=== PATIENT | female | born 1980 | race African-American/Black ===

== ENCOUNTER 2021-01-07 12:16 | Emergency (ER) | payer OTHER ==
[~2021-01-07] VITALS: Ht 160 cm; Wt 68.0 kg
[~2021-01-07 12:16] MED LIST: ADVAIR 250-501 EACH INH; ALBUTEROL INHAL17 GM; ALBUTEROL2.5 MG/0.1; BACTRIM DS TAB1 EACH PO; DENIES MEDS PO; DOXYCYCLINE 10100 M1 PO; DOXYCYCLINE 10100 MG PO; IBUPROFEN 600600 M1 PO; KEFLEX500 MG PO; MEDROLDOSEPACK PO; MUCINEX600 MG PO; NICOTINE TRANSD14 M1 TD; NICOTINE TRANSD21 M1 TD; NICOTINE TRANSDE7 MG TD; NORCO 5-325 TA1 EACH PO; NYSTATIN 1100000 U/M PO; PENICILLIN V P500 MG PO; PENICILLIN VK250 MG PO; PENICILLIN VK500 M1 PO; PENICILLIN VK500 MG PO; PERCOCET 5-3251 EACH; PERCOCET 5-3251 EACH PO; PHENERGAN 25 MG25 M1 PO; PROAIR HFA8.5 GM IH; SINGULAIR 10 MG10 M1 PO; SYMBICORT160 MCG/4. IH; TYLENOL W/CODEI1 TA2 PO; ULTRAM 50MG TAB50 MG PO; VICODIN 5-5001 EACH PO; VICOPROFEN 2001 EACH PO; VISTARIL 25 MG25 M1 PO
[2021-01-07 13:30] VITALS: BP 140/72
[2021-01-07] MEDS ORDERED: NORCO 10-325 T1 EACH PO (13:47)
== END 2021-01-07 14:25 | disposition home or self-care (01) ==
LOC: ER 12:16
DX: S67.193A Crushing injury of left middle finger, initial encounter (principal); J45.909 Unspecified asthma, uncomplicated; G43.909 Migraine, unspecified, not intractable, without status migrainosus; F17.210 Nicotine dependence, cigarettes, uncomplicated; Z88.5 Allergy status to narcotic agent; W23.0XXA Caught, crushed, jammed, or pinched between moving objects, initial encounter; Y93.89 Activity, other specified; Y92.89 Other specified places as the place of occurrence of the external cause; Y99.8 Other external cause status